=== PATIENT | female | born 1950 | race Caucasian/White ===

== ENCOUNTER 2021-03-12 09:16 | Day surgery (SDC) | payer MEDICARE, OTHER, SELFPAY ==
[2021-03-12] VITALS (12 sets, daily range): BP systolic 107–145; BP diastolic 50–77; PULSE 52–97; RESP 16–18; TEMP 36.1–36.7; O2SAT 93–100; BMI 28.7
[2021-03-12 09:50] LABS: Bedside Glucose 173 mg/dL (70-110)
[2021-03-12] MEDS: Lactated Ringers 1,000 ML 15 ML IV (10:10)
--- NOTE | 2021-03-12 11:39 | PCM.HP.STD ---
HPI - General HPI Narrative NELL GONZALEZ, is a 70 F who presents to laser stone in the left ureter. possible need to place a stent afterwards PFSH Medical History (Updated 03/07/21 @ 08:27 by Melanie Ortega) Arthritis Asthma Back pain Cardiology follow-up encounter Diabetes Dietary restriction Gastric reflux High cholesterol History of hiatal hernia History of IBS Hypertension Leg cramps Non-smoker Restless legs Shortness of breath on exertion Wears glasses Home Medications Krill Oil ([place] 3 and 6) 1 cap PO DAILY 03/07/21 [History Last Taken 03/11/21] albuterol sulfate 1 inh INHALATION Q6H PRN 03/07/21 [History Last Taken 03/12/21 09:55] ascorbic acid (vitamin C) 1 cap PO DAILY 03/07/21 [History Last Taken 03/11/21] calcium carbonate-vitamin D3 1 tab PO DAILY 03/07/21 [History Last Taken 03/11/21] cholecalciferol (vitamin D3) [Vitamin D3] 125 mcg PO DAILY 03/07/21 [History Last Taken 03/11/21] lansoprazole 30 mg PO DAILY 03/07/21 [History Last Taken 03/12/21] losartan 100 mg PO QHS 03/07/21 [History Last Taken 03/11/21] metformin 1,000 mg PO BID 03/07/21 [History Last Taken 03/11/21] rosuvastatin [Crestor] 10 mg PO DAILY 03/07/21 [History Last Taken 03/11/21] cephalexin 500 mg PO BID #10 cap 03/12/21 [Rx Last Taken Unknown] Allergy/AdvReac Type Severity Reaction Status Date / Time Sulfa (Sulfonamide Allergy Rash Verified 03/07/21 08:13 Antibiotics) Surgical History (Updated 03/07/21 @ 08:27 by Melanie Ortega) History of cystoscopy History of esophagogastroduodenoscopy (EGD) History of tonsillectomy and adenoidectomy Hx of bladder repair surgery Hx of colonoscopy Hx of total vaginal hysterectomy Social History Smoking Status: Never smoker Vital Signs Vital Signs Vital Signs: 03/12/21 09:36 Temperature 98.0 F Temperature Source Temporal Pulse Rate 97 Respiratory Rate 18 Respiratory Pattern Normal Blood Pressure 128/75 H Blood Pressure Mean 92 Blood Pressure Source Monitor Blood Pressure Position Sitting Blood Pressure Location Right Arm Pulse Ox 100 Oxygen Delivery Method Room Air Weight Weight: 90.8 kg Body Mass Index (BMI) 28.7 Results Lab / Micro Data Labs: Laboratory Results - last 24 hr 03/12/21 09:47: POC Glucose 173 H
--- NOTE | 2021-03-12 11:39 | DCINST_ITS ---
Discharge Instructions Diet Discharge Diet: No restrictions Activity Discharge Activity: Return to Normal Activity and May Not Drive (while taking narcotic pain medications.) Dressing / Incision Call your doctor if you observe: Fever of 101 or Higher Follow Up Care Please Follow Up With: Sujit Walton MD When: Call [phone] for an appointment Test Results: Test results from this visit will be discussed in further detail at your follow-up appointment, if applicable. Discharge Plan Admission Primary Reason for Your Visit: laser stone Attending Provider: Sujit Walton Primary Care Provider: Terrance Altamirano Discharge Orders/Prescriptions Prescriptions: New cephalexin 500 mg capsule 500 mg PO BID Qty: 10 RF: 0 Continued calcium carbonate-vitamin D3 600 mg-5 mcg (200 unit) Tablet 1 tab PO DAILY RF: 0 losartan 100 mg Tablet 100 mg PO QHS RF: 0 ascorbic acid (vitamin C) 1,000 mg Capsule, Extended Release 1 cap PO DAILY RF: 0 lansoprazole 30 mg Tablet,Disintegrat, Delay Rel 30 mg PO DAILY RF: 0 rosuvastatin [Crestor] 10 mg Tablet 10 mg PO DAILY RF: 0 metformin 1,000 mg Tablet Extended Release 24hr 1,000 mg PO BID RF: 0 cholecalciferol (vitamin D3) [Vitamin D3] 125 mcg (5,000 unit) Tablet 125 mcg PO DAILY RF: 0 Krill Oil ([place] 3 and 6) 1000-130(40-80) mg Capsule 1 cap PO DAILY RF: 0 albuterol sulfate 90 mcg/actuation Hfa Aerosol Inhaler 1 inh INHALATION Q6H PRN (Reason: ASTHMA) RF: 0 Referrals / Follow Up: Terrance Altamirano MD [Primary Care Provider] - Sujit Walton MD [STAFF PHYSICIAN] - Disposition Disposition (needs filled in before D/C Order can be placed): Home, Self Care
--- NOTE | 2021-03-12 11:57 | PCM.OPRPT ---
Report of Operation Date of Procedure: 03/12/21 Pre-Operative Diagnosis: left ureteral calculi, s/p stent placement Post-Operative Diagnosis: same Surgery/Procedure Performed:: Cystoscopy, removal of left stent, left ureteroscopy laser lithotripsy of stone, left retrograde pyelogram and interpretation of fluoroscopic images, no stent placed Description of Surgical Findings:: 70-year-old female she underwent a cystoscopy and stent placed for obstructing stone in the mid ureter she now presents for treatment of the stone with laser lithotripsy and removal of the stent. She was taken back to the operating room after smooth induction of anesthesia she was placed in dorsolithotomy position. Went into the bladder with a 21 Serbian rigid cystourethroscope grabbed the existing stent it was a 6 Serbian by 26 cm stent, pulled it out past the meatus and then using a 0.038 Glidewire I advanced a wire up the stent under fluoroscopic guidance and confirmed it up into the kidney. I then backloaded the stent off the wire. I then went into the bladder with a 7 Serbian semirigid ureteroscope and then identified the left ureteral orifice where the stent had been in where the wire currently is and then went next to the wire with the ureteroscope and went up the ureter very slowly until I encountered a 7 8 mm stone in the distal ureter I then used a 270 ?m laser fiber and started lasering the stone little tiny pieces the stone break would break up and then I would work my way down the ureter and the pieces will come into the bladder quite easily I went up the ureter again a few times until the stone was lasered and all the pieces passed into the bladder I then worked my way all the way up to the kidney and then at the UPJ area as I was coming down another stone fragment was visible I lasered this little tiny pieces and then work my way down the ureter and the stone fragment also passed of the ureter into the bladder. I then performed a retrograde pyelogram contrast went into the ureter went all the way up to the kidney good drainage of contrast there is no extravasation or injury of the ureter the ureter was nice and open capacious from the prior stent placement. At this point I then remove the ureteroscope I drained the bladder I did not place a stent since the stone was out in the ureter was nice and open. Patient anesthetic was reversed taken back to PACU in good condition plan to see her back in about 4 weeks for ultrasound of the kidney. Surgeon: janet Type of Anesthesia: General Drains: none Admit VTE Documentation VTE Present on Admission: No VTE Mechan Device Prophylaxis: SCD's VTE Pharm Prophylaxis ordered?: No
--- NOTE | 2021-03-12 13:06 | EKG12_ITS ---
Test Reason : POST OP Blood Pressure : / mmHG Vent. Rate : 084 BPM Atrial Rate : 092 BPM P-R Int : 000 ms QRS Dur : 088 ms QT Int : 406 ms P-R-T Axes : 044 -15 022 degrees QTc Int : 479 ms Undetermined rhythm : Consider atrial fibrillation with occasional PVC's Low voltage QRS Borderline ECG Confirmed by LIDIA ROSALES, DEVAN ([id number]), newspaper managing editor GEOVANNI KNOWLES ([id number]) on 03/28/2021 8:32:57 AM Referred By: Sujit Walton Confirmed By:DEVAN MURILLO MD
[2021-03-12 13:41] LABS: Bedside Glucose 143 mg/dL (70-110)
[2021-03-12] MEDS: Ketorolac 15 MG/ML Vial IV (14:11)
[2021-03-12 14:14] LABS: Troponin-I HS 6 pg/mL (3.0-54.0)
== END 2021-03-12 15:20 ==
LOC: SDC 09:17 → AC 09:24
PROVIDERS: Anesthesiology; Referring Provider Urology; Visit Provider Urology
PROC: 0TJ98ZZ Inspection of Ureter, Via Natural or Artificial Opening Endoscopic (ICD-10-PCS; CPT 52352; principal; 2021-03-12 11:25)
DX: N20.1 Calculus of ureter (principal); I10 Essential (primary) hypertension; E11.9 Type 2 diabetes mellitus without complications; E78.00 Pure hypercholesterolemia, unspecified; G25.81 Restless legs syndrome; J45.909 Unspecified asthma, uncomplicated; K21.9 Gastro-esophageal reflux disease without esophagitis; K58.9 Irritable bowel syndrome, unspecified; M19.90 Unspecified osteoarthritis, unspecified site; Z79.84 Long term (current) use of oral hypoglycemic drugs; Z79.899 Other long term (current) drug therapy
CPT/HCPCS: 52356; 76000; 82962; 84484; 93005; J7120; C1769; J2405

== ENCOUNTER 2021-04-18 13:16 | Outpatient (CLI) | payer MEDICARE, OTHER, SELFPAY ==
--- NOTE | 2021-04-18 13:24 | CT_ITS ---
STUDY: CT ABDOMEN AND PELVIS WITHOUT CONTRAST REASON FOR EXAM: Female, 70 years old. HYDRONEPHROSIS. Recent stent removal. Persistent low back pain. RADIATION DOSAGE (If Supplied By Facility): CTDIvol = ( 11.62 ) mGy, DLP = ( 601.02 ) mGycm TECHNIQUE: Transaxial images were obtained from the dome of the diaphragm to the symphysis pubis without oral contrast, and without intravenous contrast. Sagittal and coronal images were reconstructed. Individualized dose optimization techniques were used for this CT. COMPARISON: None. FINDINGS: Minimal increased linear markings in the lingular segment of the left upper lobe and left lower lobe suggests some mild scarring. The visualized portions of the heart are within normal limits. Normal liver. Normal gallbladder and extrahepatic biliary system. Normal spleen. Normal pancreas. Normal bilateral adrenal glands. Mild degree of right hydronephrosis and small parapelvic cysts. Suspected left parapelvic cysts and a mild degree of hydronephrosis. There is a 2 mm calculus in the mid lower pole of the left kidney as well as a 3 mm calculus in the lower pole calyx. There is a small hiatal hernia. Normal small intestine. There are multiple colonic diverticula consistent with diverticulosis. The appendix is visualized and appears normal. There is scattered atherosclerotic calcification of the abdominal aorta, without a demonstrated aneurysm. Normal inferior vena cava. Normal retroperitoneum. Normal urinary bladder. Normal abdominal wall. Disc space narrowing and degeneration at the L2-L3 and L5-S1 levels with spondylosis. Mild levoscoliosis. CT/Abdomen/Pelvis without Cont IMPRESSION: Findings suggest a mild degree of bilateral hydronephrosis slightly worse on the left side with bilateral parapelvic cysts. Sigmoid diverticulosis. Electronically Signed: Luan Edouard MD at 15:01 EST ,
== END 2021-04-18 23:59 | disposition short-term general hospital (02) ==
LOC: CT 13:20
PROVIDERS: Referring Provider Urology; Visit Provider Urology
DX: N13.2 Hydronephrosis with renal and ureteral calculous obstruction (principal); Z87.442 Personal history of urinary calculi
CPT/HCPCS: 74176